=== PATIENT | male | born 1940 | race Caucasian/White ===

== ENCOUNTER 2017-02-28 05:13 | Observation (INO) | payer MEDICARE, OTHER ==
[2017-02-28 06:00] LABS: BASOPHIL# 0.1 X 10^3uL (0.0-0.1); BASOPHILS 0.6 % (0.0-2.0); EOSINOPHILS 0.3 % (0.0-6.0); HEMATOCRIT 47.6 % (42.0-54.0); HEMOGLOBIN 15.9 g/dL (14.0-18.0); LYMPHOCYTES 7.9 % (20.0-40.0); LYMPHOCYTES# 0.8 X 10^3uL (0.8-3.8); MEAN CELL VOLUME 84.8 fL (80.0-100.0); MEAN CORPUS. HGB CONCENTRATION 33.4 g/dL (32.0-36.0); MEAN CORPUSCULAR HEMOGLOBIN 28.3 pg (29.0-35.0); MEAN PLATELET VOLUME 9.6 fL (7.4-10.4); MONOCYTES 6.3 % (2.0-10.0); MONOCYTES# 0.6 X 10^3uL (0.2-1.0); NEUTROPHILS 84.9 % (54.0-75.0); NEUTROPHILS# 8.2 X 10^3uL (2.6-6.7); PLATELET COUNT 229 X 10^3uL (130-440); RED BLOOD COUNT 5.62 X 10^6uL (4.20-6.10); RED CELL DISTRIBUTION WIDTH 13.5 % (11.5-14.5); WHITE BLOOD COUNT 9.7 X 10^3uL (3.9-10.7)
[2017-02-28] MEDS ORDERED: HOME MEDICATION LIST NEEDED 1 EA EACH MC ONE (06:18)
[2017-02-28] MEDS ORDERED: cefTRIAXone SODIUM 1,000 MG/10 ML VIAL ONE (06:29)
[2017-02-28] MEDS ORDERED: NORMAL SALINE 100 ML IV ONE (06:30)
[2017-02-28] MEDS ORDERED: AZITHROMYCIN 250 MG TABLET PO ONE ×2 (06:30→14:48)
[2017-02-28 06:36] LABS: BLOOD UREA NITROGEN 15 mg/dL (9-20); CALCIUM 9.2 mg/dL (8.4-10.2); CHLORIDE 109 mmol/L (98-107); EST GLOMERULAR FILTRATION RATE > 60 mL/min; GLUCOSE 120 mg/dL (70-100); POTASSIUM 3.6 mmol/L (3.5-5.1); SODIUM 140 mmol/L (137-145)
[2017-02-28 06:46] LABS: TROPONIN I 0.033 ng/mL (0.00-0.034)
--- NOTE | 2017-02-28 06:48 | ER PHYSICIAN DOCUMENTATION ---
Physician Documentation [facility] Name:Wero Larry Age:76 yrs Sex:Male :1940 Arrival Date:02/28/2017 Time:05:13 Bed4 Private MD:Physician, No ED Denver Quintana Disposition: 02/28 06:03 Critical Care: not applicable. sc Disposition: 02/28/17 06:04 Admit ordered for Rosy Luke. Preliminary diagnosis is Pneumonia, Unspecified. - Bed requested for Medical/Surgical. - Condition is Fair. - Problem is new. - Symptoms have improved. 23 HR OBS Yes HPI: 06:00 This 76 yrs old Male presents to ER via Wheelchair with complaints of sc Shortness Of Breath. 06:00 The patient has shortness of breath at rest. Onset: The symptom(s)/episode sc began/occurred last night. Duration: The symptoms are continuous. The patient's shortness of breath is alleviated by application of supplemental oxygen. Associated signs and symptoms: Pertinent positives: non-productive cough, fever. Severity of symptoms: At their worst the symptoms were moderate in the emergency department the symptoms are unchanged. Risk Factors The risk factors for pulmonary embolism include: This patient does not have any risk factors for a pulmonary embolism. The patient has not experienced similar symptoms in the past. Historical: - Allergies: No known drug Allergies; - Home Meds: 1. Eliquis oral 2. levothyroxine oral 3. Lipitor Oral 4. Diovan Oral - PMHx: ATRIAL FIB; Hypertension; HIGH CHOLESTEROL; HYPOTHYROIDISM; - PSHx: Knee surgery; PACEMAKER; cataracts; abdominal; - Tetanus: < 10 years. - Ebola Screening: : Patient denies exposure to infectious person. Patient denies travel to an Ebola-affected area in the 21 days before illness onset. . - Immunization history: Pneumococcal vaccine is up to date, Flu Vaccine < 1 year Flu Vaccine < 1 year. - Social history: Smoking status: Patient states was never smoker of tobacco. Patient uses alcohol only on a social basis. ROS: 06:01 Eyes: Negative for injury, pain, redness, and discharge. sc ENT: Negative for injury, pain, and discharge. Neck: Negative for injury, pain, and swelling. Cardiovascular: Negative for chest pain, palpitations, and edema. Abdomen/GI: Negative for abdominal pain, nausea, vomiting, diarrhea, and constipation. Back: Negative for injury and pain. MS/Extremity: Negative for injury and deformity. Skin: Negative for injury, rash, and discoloration. 06:01 Neuro: Negative for headache, weakness, numbness, tingling, and seizure. sc 06:01 Constitutional: Positive for body aches, chills, Negative for fever. 06:01 Respiratory: Positive for cough, with no reported sputum, shortness of breath. Exam: Constitutional: This is a well developed, well nourished patient who is awake, alert, and in no acute distress. Head/Face: Normocephalic, atraumatic. Eyes: Pupils equal round and reactive to light, extra-ocular motions intact. Lids and lashes normal. Conjunctiva and sclera are non-icteric and not injected. Cornea within normal limits. Periorbital areas with no swelling, redness, or edema. ENT: Nares patent. No nasal discharge, no septal abnormalities noted. Tympanic membranes are normal and external auditory canals are clear. Oropharynx with no redness, swelling, or masses, exudates, or evidence of obstruction, uvula midline. Mucous membranes moist. Neck: Trachea midline, no thyromegaly or masses palpated, and no cervical lymphadenopathy. Supple, full range of motion without nuchal rigidity, or vertebral point tenderness. No meningismus. Chest/axilla: Normal chest wall appearance and motion. Nontender with no deformity. No lesions are appreciated. Skin: Warm, dry with normal turgor. Normal color with no rashes, no lesions, and no evidence of cellulitis. 06:01 Neuro: Awake and alert, GCS 15, oriented to person, place, time, and situation. ms Cranial nerves II-XII grossly intact. Motor strength 5/5 in all extremities. Sensory grossly intact. Cerebellar exam normal. Normal gait. 06:01 Cardiovascular: Rate: normal, Rhythm: regular, Pulses: Pulses are 2+ in right radial artery and left radial artery. Edema: is not appreciated, JVD: is not appreciated. 06:01 Respiratory: mild respiratory distress is noted, Respirations: tachypnea, Breath sounds: decreased breath sounds, are heard in the left upper lobe. Vital Signs: 05:35 BP 184 / 90; Pulse 80; Resp 22; Temp 98(O); Pulse Ox 84% on R/A; Weight 88.45 kg; lb Height 5 ft. 10 in. (177.80 cm); Pain 0/10; 06:23 BP 142 / 72; Pulse 82; Resp 22; Pulse Ox 93% on 2 lpm NC; lb 06:46 BP 146 / 83; Pulse 80; Resp 20; Pulse Ox 93% on 2 lpm NC; lb 05:35 Body Mass Index 27.98 (88.45 kg, 177.80 cm) lb MDM: 05:43 Patient medically screened. sc 06:02 Differential diagnosis: Bronchitis pneumonia, pulmonary edema, Pulmonary Embolism. sc Antibiotic administration: Rocephin and Zithromax given. Data reviewed: vital signs, nurses notes, old medical records, lab test result(s), EKG, radiologic studies, plain films, and as a result, I will admit patient, administer antibiotics. Data interpreted: Pulse oximetry: on room air is 84 %. Interpretation: hypoxia. Plan: O2 by [place] applied. Medication response: The patient's symptoms have improved. 06:40 ECG:. sc 06:42 EKG attached 02/28 06:28 Order name: CBC AUTO DIF, MDIF/RMOR IF IND [facility] 02/28 06:48 Order name: BASIC METABOLIC PANEL [facility] 02/28 06:48 Order name: TROPONIN I [facility] 02/28 07:18 Order name: DDIMER [facility] 03/01 06:05 Order name: BASIC METABOLIC PANEL [facility] 03/01 06:07 Order name: CBC AUTO DIF, MDIF/RMOR IF IND [facility] 03/01 06:21 Order name: BLOOD CULTURE [facility] 03/01 06:21 Order name: BLOOD CULTURE [facility] 03/01 11:00 Order name: GLYCOSYLATED HGB [facility] 02/28 10:58 Order name: CAT SCAN; CHEST W/CON [id number] [facility] 02/28 11:54 Order name: CHEST; SINGLE VIEW [id number] [facility] 02/28 05:24 Order name: 12-lead EKG; Complete Time: 05:48 lb 02/28 05:24 Order name: Continuous Cardiac Monitoring; Complete Time: 05:48 lb 02/28 05:24 Order name: I & O; Complete Time: 05:48 lb 02/28 05:24 Order name: Iv Saline Lock; Complete Time: 05:48 lb 02/28 05:24 Order name: Oxygen; Complete Time: 05:26 lb 02/28 05:24 Order name: Pulse Ox Continuous; Complete Time: 05:25 lb 02/28 05:59 Order name: Place Patient On Monitor; Complete Time: 06:12 ms EC:40 Rate is 80 beats/min. Rhythm is regular with AV sequential paced. QRS interval is sc normal. QT interval is normal. No Q waves. T waves are Normal. Clinical impression: No evidence of ischemia. Interpreted by me. Reviewed by me. Dispensed Medications: 06:23 Drug: Rocephin 1 grams; Route: IVPB; Site: right antecubital; lb 06:37 Follow up: Response: No adverse reaction; IV Status: Completed infusion; IV Intake: lb 100ml 06:23 Drug: Zithromax 500 mg; Route: PO; lb 06:36 Follow up: Response: No adverse reaction lb Signatures: Denver Hager MD MD ms Aura Poole lb
--- NOTE | 2017-02-28 06:48 | ER NURSING DOCUMENTATION ---
Nurse's Notes [facility] Name:Wero Larry Age:76 yrs Sex:Male :1940 Arrival Date:02/28/2017 Time:05:13 Bed4 Private MD:Physician, Effie Diagnosis:Pneumonia, Unspecified Presentation: 02/28 05:20 Acuity: IMTIAZ 2 lb 05:31 Presenting complaint: Patient states: short of breath today. denies chest pain or lb fever, feels like he is not getting enough air. Transition of care: Home. Notified ED Physician of Dr. Hager notified. 05:31 Method Of Arrival: Wheelchair lb Triage Assessment: 05:34 General: Appears in no apparent distress, Behavior is appropriate for age, pleasant. lb Pain: Denies pain. Respiratory: Airway is patent Trachea midline Respiratory effort is even, labored, Respiratory pattern is regular, symmetrical, Breath sounds with rhonchi in left posterior lower lobe Reports shortness of breath since today Onset: The symptoms/episode began/occurred this morning, the patient has moderate shortness of breath. 05:35 EENT: No deficits noted. Neuro: No deficits noted. GI: No deficits noted. lb 06:47 Cardiovascular: Rhythm is lb Historical: - Allergies: No known drug Allergies; - Home Meds: 1. Eliquis oral 2. levothyroxine oral 3. Lipitor Oral 4. Diovan Oral - PMHx: ATRIAL FIB; Hypertension; HIGH CHOLESTEROL; HYPOTHYROIDISM; - PSHx: Knee surgery; PACEMAKER; cataracts; abdominal; - Tetanus: < 10 years. - Ebola Screening: : Patient denies exposure to infectious person. Patient denies travel to an Ebola-affected area in the 21 days before illness onset. . - Immunization history: Pneumococcal vaccine is up to date, Flu Vaccine < 1 year Flu Vaccine < 1 year. - Social history: Smoking status: Patient states was never smoker of tobacco. Patient uses alcohol only on a social basis. Screenin:37 Infectious Disease Risk None. Abuse screen: Denies threats or abuse. Denies injuries lb from another. Nutritional screening: No deficits noted. Assessment: 05:36 See Triage Assessment done by same RN. General: Appears in no apparent distress, lb Behavior is appropriate for age, pleasant. Pain: Denies pain. Neuro: No deficits noted. Respiratory: Airway is patent Trachea midline Respiratory effort is even, labored, Respiratory pattern is regular, symmetrical, Breath sounds with rhonchi in left posterior lower lobe. 06:47 Cardiovascular: No deficits noted. Rhythm is lb Vital Signs: 05:35 BP 184 / 90; Pulse 80; Resp 22; Temp 98(O); Pulse Ox 84% on R/A; Weight 88.45 kg; lb Height 5 ft. 10 in. (177.80 cm); Pain 0/10; 06:23 BP 142 / 72; Pulse 82; Resp 22; Pulse Ox 93% on 2 lpm NC; lb 06:46 BP 146 / 83; Pulse 80; Resp 20; Pulse Ox 93% on 2 lpm NC; lb 05:35 Body Mass Index 27.98 (88.45 kg, 177.80 cm) lb ED Course: 05:14 Patient arrived in ED. em2 05:14 Physician, No is Private Physician. em2 05:20 Aura Poole is Primary Nurse. lb 05:22 Triage completed. lb 05:37 Valuables Remains with patient Patient has correct armband on for positive lb identification. Placed in gown. Bed in low position. Call light in reach. 05:37 EKG done. (by ED staff). lb 05:40 Inserted saline lock: 20 gauge in right antecubital area and blood collected. em1 05:42 Port Xray Completed. tt 05:43 Denver Hager MD is Attending Physician. sc 05:44 Rosy Luke MD is Private Physician. em2 06:04 Rosy Luke MD is Admitting Physician. sc 06:42 EKG attached lb Administered Medications: 06:23 Drug: Rocephin 1 grams; Route: IVPB; Site: right antecubital; lb 06:37 Follow up: Response: No adverse reaction; IV Status: Completed infusion; IV Intake: lb 100ml 06:23 Drug: Zithromax 500 mg; Route: PO; lb 06:36 Follow up: Response: No adverse reaction lb Intake: 06:37 IV: 100ml; Total: 100ml. lb Outcome: 06:04 Decision to Admit by Provider. sc 06:46 Admitted to Med/surg accompanied by nurse, via stretcher, with oxygen. lb 06:46 Condition: stable 06:46 Report given to Kemar GOLDEN 06:46 Instructed on need to admit 06:48 Patient left the ED. lb Signatures: Denver Hager MD MD sc Terriere, Tracy tt [employer], Jen[employer]tech em1 Meinking-reg, Jen-reg em2 Aura Poole
[2017-02-28] MEDS ORDERED: APIXABAN 2.5 MG TABLET PO SCH (09:00)
[2017-02-28] MEDS ORDERED: ATORVASTATIN CALCIUIM 40 MG TABLET PO SCH (09:00)
[2017-02-28] MEDS ORDERED: APIXABAN 5 MG PO SCH (09:00)
[2017-02-28] MEDS ORDERED: LEVOTHYROXINE 125 MCG TABLET PO SCH (09:00)
[2017-02-28] MEDS ORDERED: VALSARTAN 80 MG TABLET PO SCH (10:00)
--- NOTE | 2017-02-28 10:56 | CT REPORT ---
HISTORY: Pneumonia, possible masses. COMPARISON: None. TECHNIQUE: This examination was performed using automated exposure control, adjustment of mA or kV according to patient size, and/or use of iterative reconstruction technique. Axial CT imaging from the thoracic i nlet through the upper abdomen following administration of IV contrast. 98 cc SV 300 FINDINGS: CHEST: Heart and mediastinum: No mediastinal or hilar adenopathy. Calcific atherosclerosis involving the cor onary arteries. There is a pacemaker in place. Lungs: Patchy regions of airspace opacity throughout the left upper lobe with some involvement of the superior segment of the left lower lobe. No central obstruction identified. Additional subtle region s of groundglass opacity in the right upper lobe also favored to be due to underlying pneumonia. Pleura: No effusion or pneumothorax. Upper abdomen: Hepatic and splenic hypodensities favored to be cysts. Bones: Multilevel thoracic spondylosis. IMPRESSION: 1. Extensive left upper lobe pneumonia. 2. Additional regions of pneumonia in the left lower lobe and right upper lobe. 3. No central obstruction identified. 4. Imaging follow-up to clearance recommended. Final Electronic Signature: This report was electronically signed by Maldonado Langston MD on 02/28/2017 10:53 AM. nicky /
--- NOTE | 2017-02-28 11:12 | RADIOLOGY REPORT ---
A limited single portable view of the chest, without prior films for comparison , demonstrates mixed infiltrate involving the left upper lung field. There are findings raising concern for a 3 cm mass involving the medial aspect of the right upper lobe. Lung garcia are otherwise unremarkable. Heart and vessels are otherwise unremarkable. Left pacemaker appears normal. IMPRESSION: 1. Left upper lobe infiltrate. 2. Question right upper lobe mass. Recommend further evaluation with CT scanning. Findings were personally reviewed with Dr. Gallegos at 0915 hours. [facility]
[2017-02-28] MEDS ORDERED: AZITHROMYCIN 250 MG TABLET PO SCH (16:00)
[2017-02-28] MEDS: APIXABAN 2.5 MG TABLET PO SCH (18:04)
[2017-02-28 23:12] VITALS: PULSE 80
[2017-03-01 05:53] LABS: BASOPHILS 0.5 % (0.0-2.0); EOSINOPHILS 2.5 % (0.0-6.0); EOSINOPHILS# 0.2 X 10^3uL (0.0-0.4); HEMATOCRIT 45.2 % (42.0-54.0); HEMOGLOBIN 15.1 g/dL (14.0-18.0); LYMPHOCYTES 24.2 % (20.0-40.0); LYMPHOCYTES# 1.6 X 10^3uL (0.8-3.8); MEAN CELL VOLUME 85.4 fL (80.0-100.0); MEAN CORPUS. HGB CONCENTRATION 33.3 g/dL (32.0-36.0); MEAN CORPUSCULAR HEMOGLOBIN 28.5 pg (29.0-35.0); MEAN PLATELET VOLUME 9.4 fL (7.4-10.4); MONOCYTES 9.6 % (2.0-10.0); MONOCYTES# 0.6 X 10^3uL (0.2-1.0); NEUTROPHILS 63.2 % (54.0-75.0); NEUTROPHILS# 4.4 X 10^3uL (2.6-6.7); PLATELET COUNT 184 X 10^3uL (130-440); RED CELL DISTRIBUTION WIDTH 13.9 % (11.5-14.5); WHITE BLOOD COUNT 6.8 X 10^3uL (3.9-10.7)
[2017-03-01 05:56] LABS: BLOOD UREA NITROGEN 14 mg/dL (9-20); CALCIUM 9.3 mg/dL (8.4-10.2); CHLORIDE 106 mmol/L (98-107); EST GLOMERULAR FILTRATION RATE > 60 mL/min; GLUCOSE 105 mg/dL (70-100); SODIUM 143 mmol/L (137-145)
[2017-03-01] MEDS: APIXABAN 2.5 MG TABLET PO SCH (06:12)
[2017-03-01 06:22] VITALS: BP 127/85; RESP 20; TEMP 97.2
[2017-03-01] MEDS ORDERED: VALSARTAN 80 MG TABLET PO SCH (06:30)
[2017-03-01] MEDS ORDERED: ATORVASTATIN CALCIUIM 40 MG TABLET PO SCH (06:30)
[2017-03-01] MEDS ORDERED: LEVOTHYROXINE 125 MCG TABLET PO SCH (06:30)
[2017-03-01] MEDS ORDERED: cefTRIAXone SODIUM 1,000 MG in NORMAL SALINE MINI-BAG+ 100 ML IV SCH (08:00)
--- NOTE | 2017-03-01 08:09 | HISTORY & PHYSICAL ---
Assessment and Plan: This 76-year-old patient of Dr. 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 ~He is especially noticed the dyspnea with exertion, but last night became short of breath even at rest. ~He has no history of PE or DVT and is already anticoagulated with Eliquis for his atrial fibrillation. ~On x-ray he has a right upper and lower lobe pneumonia. ~Radiology suggested a CAT scan to rule out a postobstructive pneumonia, which fortunately was negative for any mass. ~ He did show some right lung involvement and then pneumonia, as well.~~Patient was moderately hypoxic on admission and required 2 L of O2 to maintain adequate saturations. ~ Assessment:~Community-acquired pneumonia, possibly atypical. Plan:~He was given Rocephin and azithromycin in the ED, and will be continued on these. ~I will reassess him tomorrow. ~He is taking p.o. fluids well, so we will not give IV fluids at this point. ~Duo nebs as needed. ~RT. ~ ~ Hypoxia Refer to the section on pneumonia ~ Permanent atrial fibrillation (HC code) He has permanent atrial fibrillation. ~He is pacemaker dependent since getting an ablation of his atrial node. ~Unfortunately this has not improved his exercise tolerance overall. ~ Pacemaker Done for chronic atrial fibrillation with failed previous ablation treatments ~ Hypothyroidism due to acquired atrophy of thyroid Appropriately controlled. ~Last rechecked in November 2016~ ~ Essential hypertension Appropriately controlled. ~~ Subjective: Patient ID: Wero Larry~is a 76 y.o.~male~who presents to [facility]~for an annual preventive visit. ~ HPI Refer to the A&P section above for an additional problem-oriented history, assessment, and plan. ~ CURRENT MEDICATIONS: Current Outpatient Prescriptions Medication Sig atorvaSTATin (LIPITOR) 40 mg tablet Take 40 mg by mouth daily. CHOLECALCIFEROL, VITAMIN D3, (VITAMIN D3 PO) ~ ELIQUIS 5 mg tablet Take 5 mg by mouth 2 times daily. levothyroxine (SYNTHROID) 125 mcg tablet Take 125 mcg by mouth daily. TACROlimus (PROTOPIC) 0.1 % ointment Apply topically 2 times daily as needed for Intractable Eczema. valsartan-hydrochlorothiazide (DIOVAN-HCT) 160-12.5 mg per tablet Take 1 tablet by mouth daily. ~ No current facility-administered medications for this visit. ALLERGIES:~Sulfa (sulfonamide antibiotics) I have reviewed, verified and personally updated the past medical and social ~ history. Past Medical History Past Medical History: Diagnosis Date A-fib (HC code) ~ Squamous carcinoma (HC code) ~ Past Surgical History Past Surgical History: Procedure Laterality Date ABLATION OF DYSRHYTHMIC FOCUS ~ 12/2015 colon polyps ~ ~ diverticulosis ~ ~ melanoma ~ ~ PACEMAKER INSERTION ~ 07/04/2016 thyroid resection ~ 2002 TOTAL KNEE ARTHROPLASTY Bilateral ~ Family History No family history on file. Social History Social History Marital status: ~ ~ Spouse name: N/A Number of children: N/A Years of education: N/A Social History Main Topics Smoking status: Never Smoker Smokeless tobacco: Not on file Alcohol use Not on file Drug use: Not on file Sexual activity: Not on file Other Topics Concern Not on file Social History Narrative Review of Systems Constitutional: Positive for activity change, appetite change~and fatigue. Negative for chills~and fever. HENT: Negative. ~ Eyes: Negative. ~ Respiratory: Positive for cough~(Nonproductive)~and shortness of breath. Negative for chest tightness, wheezing~and stridor. ~ Cardiovascular: Negative for chest pain~and palpitations. Genitourinary: Negative. ~ Musculoskeletal: Negative. ~ Skin: Negative. ~ Neurological: Negative. ~ Hematological: Negative. ~ Psychiatric/Behavioral: Negative. ~ ~ ~~ Objective: ~ Physical Exam~ Constitutional: He is oriented to person, place, and time. No distress. Eyes: Conjunctivae~are normal. Cardiovascular: Normal rate~and normal heart sounds. ~An irregular rhythm~ present. Pulmonary/Chest: He is in respiratory distress~(Very mild). He has no wheezes. He has rales~(Audible in the left base only). Pacemaker~ Abdominal: He exhibits no distension. There is no tenderness. Musculoskeletal: He exhibits no edema. Neurological: He is alert~and oriented to person, place, and time. Psychiatric: He has a normal mood and affect. ~ DATA: WBC is 9.7 with 85% neutrophils. ~D-dimer 403, sodium 140, creatinine 1.2 ~ Chest x-ray and chest CT findings described in the A&P section ~~ MD FRED Forte
[2017-03-01 08:10] VITALS: O2SAT 92
--- NOTE | 2017-03-01 08:37 | DC SUMMARY: IM Note ---
Discharge Summary: IM/Peds Provider: Date of Admission: 02/28/17 Admitting Provider: SOPHY WARNER MD Attending Provider: ARACELI MAGAÑA MD Discharging Provider: SOPHY WARNER MD Primary Care Provider: Discharge Date: 03/01/17 - Diagnosis (1) Left upper lobe pneumonia Status: Acute (2) Hypoxia Status: Acute (3) Hypothyroidism (acquired) Status: Acute (4) Atrial fibrillation, permanent Status: Acute (5) Mixed hyperlipidemia Status: Acute Hospital Course: This 76-year-old gentleman was admitted yesterday for a 2 day history of community-acquired pneumonia involving primarily the left upper and lower lobes , but to a lesser extent, the right lung. His chief complaint was shortness of breath, and he was hypoxic on admission, requiring 2 L/m of oxygen to maintain adequate saturations. There was some question on the chest x-ray of a mediastinal abnormality, but a chest CT ruled out any mass. He responded nicely overnight to Rocephin 1 g every 24 hours and azithromycin 500 mg by mouth. He is now oxygenating at 95% on room air at rest and 88% with walking. I will send him home today after his next dose of IV Rocephin. He should be fine without oxygen. I will continue him on azithromycin 250 mg daily for 6 more days and Ceftin 500 mg twice a day for 7 days. He will follow-up with his PCP Dr. Magaña on Monday 03/05. - Time Spent with Patient Total time spent providing and/or coordinating discharge services: Discharge - Patient/Caregiver Discharge Instructions Activity Level: As tolerated Diet: Regular Follow up: ARACELI MAGAÑA MD [Primary Care Provider] - 03/05/17 9:40 am Home Medications: Azithromycin [Zithromax*] 250 mg PO DAILY #6 tab Cefuroxime Axetil [Cefuroxime] 500 mg PO BID #14 tab Disposition: HOME, SELF-CARE Discharge Summary Data - Medication History Medication History: Home Medications Apixaban [Eliquis] 5 mg PO BID 02/28/17 Cholecalciferol [Vitamin D*] 1,000 unit PO DAILY 02/28/17 Levothyroxine [Synthroid] 125 mcg PO EVERY MORNING 02/28/17 Valsartan 160 mg PO EVERY MORNING 02/28/17 Atorvastatin Calcium [Lipitor*] 40 mg PO BEDTIME (DAILY) #0 tab 03/01/17 Azithromycin [Zithromax*] 250 mg PO DAILY #6 tab 03/01/17 Cefuroxime Axetil [Cefuroxime] 500 mg PO BID #14 tab 03/01/17 Inpatient Medications 02/28/17 18:30 Apixaban [Eliquis] 5 mg PO BID@0630,1830 03/01/17 06:30 Atorvastatin Calcium [Lipitor] 40 mg PO DAILY@0630 Levothyroxine [Synthroid] 125 mcg PO DAILY@0630 Valsartan [Diovan] 160 mg PO DAILY@30 03/01/17 08:00 cefTRIAXone SODIUM [Rocephin] 1,000 mg Normal Saline Mini-Bag+ [Sodium Chloride 100 ml Mini-Bag Plus] 100 ml IV Q24H 03/01/17 09:00 Azithromycin [Zithromax] 250 mg PO DAILY Procedures and tests throughout hospitalization: Completed Imaging Orders 02/28/17 09:16 ct [CAT SCAN; CHEST W/CON 48472] [CT] Routine Pending Orders 02/28/17 06:18 Resuscitation Status Routine 02/28/17 18:30 Apixaban [Eliquis] 5 mg PO BID@0630,1830 03/01/17 05:00 BMP [BASIC METABOLIC PANEL] [CHEM] AMDRAW CBC AUTO DIF, MDIF/RMOR IF IND [HEM] AMDRAW 03/01/17 06:30 Atorvastatin Calcium [Lipitor] 40 mg PO DAILY@0630 Levothyroxine [Synthroid] 125 mcg PO DAILY@30 Valsartan [Diovan] 160 mg PO DAILY@62903/01/17 07:45 GLYCOSYLATED HGB [CHEM] Routine 03/01/17 08:00 cefTRIAXone SODIUM [Rocephin] 1,000 mg Normal Saline Mini-Bag+ [Sodium Chloride 100 ml Mini-Bag Plus] 100 ml IV Q24H 03/01/17 09:00 Azithromycin [Zithromax] 250 mg PO DAILY 03/01/17 10:00 Discharge ONCE Labs on day of discharge: Labs from last 24 hours 03/01/17 03/01/17 07:45 05:00 WBC 6.8 RBC 5.30 Hgb 15.1 Hct 45.2 MCV 85.4 MCH 28.5 L MCHC 33.3 RDW 13.9 Plt Count 184 MPV 9.4 Neutrophils % 63.2 Lymphocytes % 24.2 Eosinophils % 2.5 Basophils % 0.5 Neutrophils # 4.4 Lymphocytes # 1.6 Monocytes 9.6 Monocytes # 0.6 Eosinophils # 0.2 Basophils # 0.0 Sodium 143 Potassium Pending Chloride 106 Carbon Dioxide 26 BUN 14 Creatinine 1.0 GFR Calculation > 60 Glucose 105 H Hemoglobin A1c Pending Calcium 9.3 IM: Discharge Physical Exam - I&O/Vital Signs I&O: Intake & Output 02/28/17 03/01/17 03/01/17 21:59 05:59 13:59 Intake Total 490 400 Balance 490 400 Intake: Oral 490 400 Other: Urine Appearance Clear Urine Color Straw Voiding Method Toilet # Voids 1 Vital Signs: Last Vital Signs Temp 36.2 C L 03/01/17 06:21 Pulse 80 03/01/17 06:21 Resp 20 03/01/17 06:21 BP 127/85 03/01/17 06:21 Pulse Ox 92 03/01/17 08:09 Oxygen Flow Rate 2 Oxygen Delivery Method Room Air - Constitutional General appearance: Present: average body habitus - ENT ENT exam: Present: mucous membranes moist - Respiratory Respiratory exam: Present: clear - Cardiovascular Cardiovascular exam: Present: irregular rhythm. Absent: systolic murmur - Extremities Exam Extremities exam: Absent: calf tenderness, edema - Neurological Exam Neurological exam: Present: alert, oriented X3 - Psychiatric Psychiatric exam: Present: normal affect
[2017-03-01] MEDS ORDERED: AZITHROMYCIN 250 MG TABLET PO SCH (09:00)
[2017-03-01 09:44] LABS: POTASSIUM 4.8 mmol/L (3.5-5.1)
== END 2017-03-01 10:00 | disposition home or self-care (01) ==
LOC: ER 05:13 → IN 06:40
PROVIDERS: ADMIT Family Medicine; ATTEND Family Medicine
DX: J18.9 Pneumonia, unspecified organism (principal); E03.9 Hypothyroidism, unspecified; I48.2 Chronic atrial fibrillation; R78.5 Finding of other psychotropic drug in blood; Z95.0 Presence of cardiac pacemaker; I10 Essential (primary) hypertension; Z79.01 Long term (current) use of anticoagulants; Z79.899 Other long term (current) drug therapy
CPT/HCPCS: 71010; 71260; 80048; 83036; 84484; 85025; 85379; 87040; 93005; 93010; 96366; 96374; 99285; G0378; J0696; Q0144